=== PATIENT | female | born 1950 | race Caucasian/White ===

== ENCOUNTER 2018-02-25 09:58 | Inpatient (IN) | payer MEDICARE, OTHER ==
[2018-02-25] MEDS ORDERED: Diltiazem 125 MG/25 ML ONE (10:43)
[2018-02-25 10:49] LABS: #Basophils 0.1 thou/uL (0.0-0.2); #Eosinphils 0.1 thou/uL (0.0-0.7); #Lymphocytes 2.2 thou/uL (1.20-3.40); #Monocytes 0.7 thou/uL (0.11-0.59); #Neutrophils 5.8 thou/uL (1.40-6.50); %Basophils 0.7 % (0.0-1.0); %Eosinophils 1.4 % (0.0-10.0); %Lymphocytes 24.5 % (21.0-51.0); %Monocytes 7.3 % (0.0-10.0); %Neutrophils 66.1 % (42.0-75.0); Hemoglobin 15.5 g/dL (12.0-16.0); Mean Corpuscular HGB CONC 31.6 g/dL (32.0-36.0); Mean Corpuscular Hemoglobin 26.6 pg (27.0-31.0); Mean Corpuscular Volume 84.1 fL (78.0-98.0); Mean Platelet Volume 8.8 fL (7.4-10.4); Platelet Count 261 thou/uL (130-400); RBC Distribution Width 13.2 % (11.5-14.5); Red Blood Cell (RBC) Count 5.83 mill/uL (4.20-5.40); White Blood Cell (WBC) Count 8.8 thou/uL (4.8-10.8)
--- NOTE | 2018-02-25 10:50 | RAD ---
PORTABLE UPRIGHT FRONTAL CHEST RADIOGRAPH: Date: 02-25-18 Comparison: None. History: Intermittent palpitations and tachycardia. FINDINGS: Lungs appear clear. No pneumothorax, pleural fluid, focal consolidation, or alveolar edema. Heart and mediastinal contours are unremarkable. IMPRESSION: No acute findings. POS: [facility]
[2018-02-25 11:05] LABS: CKMB 0.6 ng/mL (0-6.6)
[2018-02-25 11:08] LABS: ALT (SGPT) 16 U/L (8-55); AST (SGOT) 18 U/L (5-34); Albumin 4.4 g/dL (3.4-4.8); Alkaline Phosphatase 71 U/L (40-150); Anion Gap 18 mmol/L (10-20); BUN (Urea Nitrogen) 15 mg/dL (9.8-20.1); Bilirubin, Total 0.4 mg/dL (0.2-1.2); Calc. Creatinine Clearance 0 mL/min (70-130); Carbon Dioxide 22 mmol/L (23-31); Chloride 104 mmol/L (98-107); Estimated GFR-MDRD 77; Globulin 3.3 g/dL (2.4-3.5); Glucose 124 mg/dL (80-115); Lipase 14 U/L (8-78); Magnesium 2.3 mg/dL (1.6-2.6); Potassium 4.7 mmol/L (3.5-5.1); Protein, Total 7.7 g/dL (6.0-8.3); Sodium 139 mmol/L (136-145)
[2018-02-25 14:53] LABS: Troponin I Less than 0.010 ng/mL (< 0.028)
[2018-02-25] MEDS ORDERED: Diltiazem HCl 125 MG, Admixture Fee 1 EACH in Sodium Chloride 0.9% 100 ML IVPB SCH (15:00)
[2018-02-25 16:30] VITALS: BMI 33.3
[2018-02-25 17:35] LABS: Troponin I Less than 0.010 ng/mL (< 0.028)
[2018-02-25] MEDS ORDERED: Digoxin 0.5 MG/2 ML AMP SLOW IVP SCH (18:15)
[2018-02-25] MEDS ORDERED: hydrALAZINE 20 MG/ML VIAL SLOW IVP PRN (21:09)
[2018-02-25] MEDS ORDERED: Ondansetron PF 4 MG/2 ML Vial IVP PRN (21:09)
[2018-02-25] MEDS ORDERED: Acetaminophen 500 MG TAB PO PRN (21:09)
[2018-02-25] MEDS ORDERED: Ondansetron ODT 4 MG TAB PO PRN (21:09)
[2018-02-25] MEDS: Sodium Chloride 0.9% 1,000 ML IV SCH (21:43)
[2018-02-26] MEDS: Digoxin 0.5 MG/2 ML AMP SLOW IVP SCH ×2 (00:47→06:09)
--- NOTE | 2018-02-26 04:30 | HP ---
PRIMARY CARE PROVIDER: Dr. Neda Hamilton, formerly Dr. Deedee Richardson. CHIEF COMPLAINT: Palpitations. HISTORY OF PRESENT ILLNESS: This is a 67-year-old female who presented to [facility] Emergency Department complaining of palpitations for the last three days. The patient noted recurrent symptoms over the last three days, lasting up to a few minutes with each episode with accompanying lightheadedness, sweating, but no specific chest pain. The patient denied any jaw or left arm discomfort, recent fever, medication changes, or exposure history. The patient states she had similar episodes on and off over the last four weeks, and also, a similar episode occurring approximately seven years prior to this evaluation. The patient states she has some relief when bearing down to make the palpitations decrease. Activity does make it worse. The patient denies any chronic medication use, recent drug or chemical exposure. In the emergency room, the patient underwent general evaluation with EKG showing atrial fibrillation with rapid ventricular response. The patient received a Cardizem bolus followed by an infusion at 5 mg/hour and transferred to [facility] Room for evaluation. PAST MEDICAL HISTORY: Reviewed and negative. PAST SURGICAL HISTORY: Reviewed and negative. CURRENT MEDICATIONS: Aspirin 81 mg daily. ALLERGIES: NO KNOWN DRUG ALLERGIES. FAMILY HISTORY: No inheritable disease per the patient report. SOCIAL HISTORY: The patient resides in the [facility]. Retired, . No current alcohol, tobacco, or illicit drug use. Functional of all activities of daily living. REVIEW OF SYSTEMS: CONSTITUTIONAL: Negative for weight loss or gain, ability to conduct usual activities. SKIN: Negative for rash, itching. EYES: Negative for double vision, pain. ENT/MOUTH: Negative for nose bleeding, neck stiffness, pain, tenderness. CARDIOVASCULAR: Negative for palpitations, dyspnea on exertion, orthopnea. RESPIRATORY: Negative for shortness of breath, wheezing, cough, hemoptysis, fever or night sweats. GASTROINTESTINAL: Negative for poor appetite, abdominal pain, heartburn, nausea, vomiting, constipation, or diarrhea. GENITOURINARY: Negative for urgency, frequency, dysuria, nocturia. MUSCULOSKELETAL: Negative for pain, swelling. NEUROLOGIC/PSYCHIATRIC: Negative for anxiety, depression. ALLERGY/IMMUNOLOGIC: Negative for skin rash, bleeding tendency. Otherwise negative except as stated per HPI. PHYSICAL EXAMINATION: VITAL SIGNS: On admission, blood pressure 167/88, pulse 107, respiratory rate 16, temperature 97.6 degrees Fahrenheit, and O2 saturation 100% on room air. GENERAL APPEARANCE: This is a 67-year-old female, alert, oriented x3, pleasant, in no acute distress. HEENT: Pupils are equal, round, reactive to light and accommodation. Extraocular muscles are intact. No scleral icterus. No conjunctival injection. Nares patent. OP is clear. Teeth in good repair. NECK: Supple. No cervical adenopathy. No thyromegaly. No carotid bruits. No JVD appreciated. Cervical spine with full active and passive range of motion. No meningeal signs appreciated. CHEST: Lungs are clear to auscultation bilaterally. CARDIOVASCULAR: S1, S2 with irregular rate and rhythm. Tachycardic. ABDOMEN: Rounded, soft, nontender, nondistended. Bowel sounds are positive in all four quadrants. There is no hepatosplenomegaly. No abdominal bruits. No rebound or guarding appreciated. EXTREMITIES: Warm and dry with fair turgor. No clubbing, cyanosis, or asymmetric edema appreciated. Pulses palpable distally at the dorsalis pedis, posterior tibial, and popliteal arteries bilaterally. Capillary refill less than 2 seconds. NEUROLOGIC: Cranial nerves 2 through 12 are grossly intact. No focal or lateralizing signs appreciated. PERTINENT LAB AND X-RAY FINDINGS: Basic metabolic profile within normal limits. Calcium 10.0, magnesium 2.3. LFTs within normal limits. Troponin I negative x3. TSH 1.88. CBC showed a white blood cell count of 8.8, hemoglobin 16, hematocrit 49, and platelet count 261 with normal differential. Portable chest x-ray dated 02/25/2018 showed no acute cardiopulmonary process. EKG dated 02/25/2018 by my interpretation shows atrial fibrillation with rapid ventricular response in the 170s. Normal R-wave progression noted in the precordial leads. Normal axis. ASSESSMENT/PLAN: 1. Atrial fibrillation with rapid ventricular response. Questionable duration and potential chronic component. We will continue rate control strategy with Cardizem infusion at 7.5 mg/hour. Digoxin 0.5 mg IV x1 followed by 0.25 mg p.o. daily. Aspirin 81 mg p.o. daily. Check 2D transthoracic echocardiogram in the a.m. Repeat magnesium level in the a.m. Continue intravenous normal saline at 75 mL/hour. 2. Hyperglycemia. Suspect stress reaction. We will continue to monitor glucose trend. Consider A1c evaluation. 3. Prophylaxis. SCDs while in bed. Pepcid 20 mg p.o. b.i.d. 4. Code status: Full. Surrogate medical decision maker is the patient's daughter. Job ID: [id number]
[2018-02-26] MEDS ORDERED: Diltiazem HCl 125 MG, Admixture Fee 1 EACH in Sodium Chloride 0.9% 100 ML IVPB SCH (05:15)
[2018-02-26 06:29] LABS: Hemoglobin 14.2 g/dL (12.0-16.0); Mean Corpuscular HGB CONC 33.1 g/dL (32.0-36.0); Mean Corpuscular Hemoglobin 28.8 pg (27.0-31.0); Mean Corpuscular Volume 86.9 fL (78.0-98.0); Mean Platelet Volume 8.5 fL (7.4-10.4); Platelet Count 272 thou/uL (130-400); RBC Distribution Width 13.3 % (11.5-14.5); Red Blood Cell (RBC) Count 4.92 mill/uL (4.20-5.40); White Blood Cell (WBC) Count 7.6 thou/uL (4.8-10.8)
[2018-02-26 06:36] LABS: ALT (SGPT) 12 U/L (8-55); AST (SGOT) 11 U/L (5-34); Albumin 3.7 g/dL (3.4-4.8); Alkaline Phosphatase 64 U/L (40-150); Anion Gap 12 mmol/L (10-20); BUN (Urea Nitrogen) 16 mg/dL (9.8-20.1); Bilirubin, Total 0.3 mg/dL (0.2-1.2); Calc. Creatinine Clearance 130 mL/min (70-130); Carbon Dioxide 24 mmol/L (23-31); Cardiac Risk 4.9 (Less than 4.5); Chloride 107 mmol/L (98-107); Cholesterol 178 mg/dl (< 200 Desired); Estimated GFR-MDRD 83; Globulin 2.7 g/dL (2.4-3.5); Glucose 117 mg/dL (80-115); HDL Cholesterol 36 mg/dL (>60 Neg Risk); LDL Cholesterol, Calculated 124 mg/dL; Magnesium 1.9 mg/dL (1.6-2.6); Potassium 4.4 mmol/L (3.5-5.1); Protein, Total 6.4 g/dL (6.0-8.3); Sodium 139 mmol/L (136-145); Triglycerides 91 mg/dL (Less than 150)
[2018-02-26 06:46] LABS: Band 1 % (5-11); Lymphocytes 25 % (21-51); MDiff Complete? YES; Monocytes 3 % (0-10); Neutrophil 68 % (42-75); PLT Morphology Comment Appears Adequate; RBC Morphology Normal; Reactive Lymphocytes 3 % (0-10)
--- NOTE | 2018-02-26 07:14 | CON ---
DATE OF CONSULTATION: 02/25/2018 TYPE OF CONSULTATION: Cardiology. INDICATIONS FOR CONSULTATION: A 67-year-old female with atrial fibrillation with rapid ventricular response. HISTORY OF PRESENT ILLNESS: This is a very pleasant 67-year-old female, who has had no previous cardiac history that she is aware of except for some occasional palpitations notes that she had an increased heart rate, she became short of breath since last p.m., and it became worse when she has exertion. She had a similar episode about 7 years ago and has had some short episodes in the interim, and these have usually resolved on their own, but she noticed to have increased heart rate and shortness of breath, and presented into the emergency room and was found to have atrial fibrillation with rapid ventricular response, heart rate was up to 170 beats per minute. Since that time, she has been started on IV diltiazem, and the heart rate still is in the 120s to 130s. PAST MEDICAL HISTORY: Unremarkable for any operations or illness. She states she has never been in the hospital before. HOME MEDICATIONS: None except for an occasional aspirin. SOCIAL HISTORY: She is a . She has no children. She has no tobacco use. She has occasional alcohol. She drinks margaritas on Sunday nights. She travels quite frequently with her sister, and otherwise, has been having no significant abnormalities and no significant complaints. FAMILY HISTORY: Unremarkable for any early heart disease. ALLERGIES: NONE. REVIEW OF SYSTEMS: A 12-point review of systems is unremarkable except what is noted in the history of present illness and occasional cough about a month ago, which was a dry cough. PHYSICAL EXAMINATION: GENERAL: Reveals a well-developed, well-nourished female, who is in no acute distress at this time. VITAL SIGNS: Blood pressure is 150/69, earlier it was 112/69. She is afebrile. Heart rate is in the 120s to 130s and remains in atrial fibrillation. Respiratory rate is 18. O2 saturation is 94%. HEENT: Shows the head to be normocephalic and atraumatic. Carotid pulses are present. There are no bruits. There is no JVD. The thyroid is not enlarged. Oral mucosa is pink and moist. CHEST: Clear to auscultation. There are no rales, rhonchi, or wheezing noted. CARDIOVASCULAR: Reveals a rapid heart rate, which is irregular. I did not hear any significant murmurs, heaves, thrills, bruits, or rubs. ABDOMEN: Shows obesity with positive bowel sounds. There is no organomegaly or massed noted. EXTREMITIES: Femoral pulses are present. Extremities show no clubbing, cyanosis, or edema. Pedal pulses are present. NEUROLOGIC: She appears to be fully intact without any focal motor deficits. She has normal strength and normal tone. SKIN: Warm and dry. IMAGING STUDIES: EKG shows atrial fibrillation with rapid ventricular response, 170 beats per minute, which is now down to 120s. LABORATORY DATA: Show WBCs of 8.8, hemoglobin 49. Chemistries indicate a sodium of 139, potassium of 4.7. Blood sugar was 124. Troponin I is negative. TSH is 1.88. IMPRESSION: 1. Atrial fibrillation with rapid ventricular response. She is on IV diltiazem. We will increase the drip and may add digoxin for better rate control. Echocardiogram is still pending. We will ensure that the patient does get an echocardiogram and further recommendations will depend on the results of the echocardiogram. If the left atrium is significantly dilated, she may not be a good candidate to undergo electrocardioversion of the atrial fibrillation and may need to under an EP evaluation and possible ablation of the atrial fibrillation. She did state that her also had atrial fibrillation in the past, and she is aware of the atrial fibrillation technology. At this time, I am uncertain as to exactly how long she has been in atrial fibrillation, and it would not be christensen to perform any type of cardioversion at this time. We would just continue rate control, and we will start anticoagulation. 2. Elevated blood sugars. She is not aware that she is a diabetic; however, this will need to be evaluated further to see whether or not she has any underlying diabetes. Also, we may need further evaluation and we will need to determine the etiology of the atrial fibrillation. I did explain to her that there is always a possibility of underlying coronary artery disease; however, with a heart rate of 170 beats per minute, she did not have any EKG changes to indicate ischemia, and she has had no chest pain or shortness of breath prior to having the episodes of the tachycardia. We are more than happy to continue to follow the patient with you, but further recommendations will depend on the results of the echocardiogram. Job ID: [id number]
[2018-02-26] MEDS: Famotidine 20 MG TAB PO SCH ×2 (08:52→20:58)
[2018-02-26] MEDS: Digoxin 0.25 MG TAB PO SCH (08:52)
[2018-02-26] MEDS: Aspirin 81 mg Enteric Coated Tablet PO SCH (08:53)
[2018-02-26] MEDS: Sodium Chloride 0.9% 1,000 ML IV SCH (09:24)
--- NOTE | 2018-02-26 14:16 | PDOC.CTH ---
<Diana Lopez - Last Filed: 02/26/18 14:15> Cardiology Progress Note - Subjective The pt seen and examined. No overnight events. No cardiac complaints. - Objective Vital Signs Temp Pulse Resp BP Pulse Ox 02/26/18 11:15 97.9 F 91 18 153/72 H 02/26/18 08:52 96 02/26/18 07:20 97.5 F L 78 16 106/58 L 98 02/26/18 06:09 83 02/26/18 04:00 99.5 F 98 18 96/65 97 Weight 234 lb 14.4 oz 02/25/18 02/26/18 02/27/18 06:59 06:59 06:59 Intake Total 240 940.4 Output Total 150 200 Balance 90 740.4 - Physical Examination General/Neuro: alert & oriented x3 Neck: no JVD present Lungs: CTA Heart: other: (irregular) Abdomen: soft Extremities: other: (No edema) - Telemetry Telemetry Rhythm: AFib 90-100s - Labs Result Diagrams: 02/26/18 05:16 02/26/18 05:16 Troponin/CKMB CK-MB (CK-2) 0.6 ng/mL (0-6.6) 02/25/18 10:34 Troponin I Less than 0.010 ng/mL (< 0.028) 02/25/18 16:47 - Assessment/Plan 1. New-onset AFib with RVR - Rate well controlled with Cardizm 7.5mg/h and Digoxin 0.125mg qd. [id number] Score is 2 (age and gender). will start Eliquis 5mg BID from this PM. will start BBlocker when her BP is stable. Echo result is pending at this time. 2. elevated glucose level - will check HgbA1c tomorrow MAR reviewed Review of Systems - Review of Systems Constitutional: reports: no symptoms reported EENTM: reports: no symptoms reported Respiratory: reports: no symptoms reported Cardiac (ROS): reports: no symptoms reported ABD/GI: reports: no symptoms reported : reports: no symptoms reported <Melani Luke - Last Filed: 02/26/18 17:13> Cardiology Progress Note - Objective Vital Signs Temp Pulse Resp BP BP Pulse Ox 02/26/18 16:15 97.9 F 106 H 18 142/70 H 93 L 02/26/18 14:33 91 130/62 02/26/18 11:15 97.9 F 91 18 153/72 H 02/26/18 08:52 96 02/26/18 07:20 97.5 F L 78 16 106/58 L 98 02/26/18 06:09 83 Weight 234 lb 14.4 oz 02/25/18 02/26/18 02/27/18 06:59 06:59 06:59 Intake Total 240 940.4 Output Total 150 200 Balance 90 740.4 - Labs Result Diagrams: 02/26/18 05:16 02/26/18 05:16 Troponin/CKMB CK-MB (CK-2) 0.6 ng/mL (0-6.6) 02/25/18 10:34 Troponin I Less than 0.010 ng/mL (< 0.028) 02/25/18 16:47 - Assessment/Plan Pt. seen and eval. by me. I agree with the A/P by the INTEGRITY ENGINEER. Plan to change to po diltiazem, oral anticoagulation and probable cardioversion in 4 weeks. If stable , home in AM.
--- NOTE | 2018-02-26 14:19 | PDOC.PN ---
- Subjective Encounter Start Date: 02/26/18 Encounter Start Time: 13:45 Subjective: f/u for A-fib RVR on Cardizem gtt now rate-controlled. Feels ok and -: no palpitations. - Objective Resuscitation Status - Order Detail: 02/25/18 21:04 Resuscitation Status Routine Resuscitation Status: FULL: Full Resuscitation MAR Reviewed: Yes Vital Signs & Weight: Vital Signs (12 hours) Temp Pulse Resp BP Pulse Ox 02/26/18 11:15 97.9 F 91 18 153/72 H 02/26/18 08:52 96 02/26/18 07:20 97.5 F L 78 16 106/58 L 98 02/26/18 06:09 83 02/26/18 04:00 99.5 F 98 18 96/65 97 Weight Weight 234 lb 14.4 oz I&O: 02/25/18 02/26/18 02/27/18 06:59 06:59 06:59 Intake Total 240 940.4 Output Total 150 200 Balance 90 740.4 Result Diagrams: 02/26/18 05:16 02/26/18 05:16 Additional Labs: Laboratory Tests 02/25/18 10:34 TSH 3rd Generation 1.8800 Radiology Reviewed by me: Yes (2D echo - pending) EKG Reviewed by me: Yes (Tele - A-fib in 80's) Phys Exam - Physical Examination Constitutional: NAD HEENT: PERRLA, sclera anicteric, oral pharynx no lesions Neck: no nodes, no JVD, supple, full ROM Respiratory: no wheezing, no rales, no rhonchi, clear to auscultation bilateral S1, S2 Cardiovascular: no rub, gallop, irregular Gastrointestinal: soft, non-tender, no distention, positive bowel sounds Musculoskeletal: no edema, pulses present Neurological: normal sensation, moves all 4 limbs Psychiatric: normal affect, A&O x 3 Skin: normal turgor, cap refill <2 seconds Dx/Plan (1) Atrial fibrillation with RVR Code(s): I48.91 - UNSPECIFIED ATRIAL FIBRILLATION Status: Chronic Comment: Start Cardizem CD 120mg daily, d/c Cardizem gtt, continue Digoxin 0.25mg daily, start Xarelto 20mg daily, 2D echo pending (2) Palpitations Code(s): R00.2 - PALPITATIONS Status: Acute Comment: Secondary to #1, improved (3) Hyperglycemia Code(s): R73.9 - HYPERGLYCEMIA, UNSPECIFIED Status: Chronic Comment: A1C pending, serial monitoring - Plan plan discussed w/ family, out of bed/ambulate, DVT proph w/SCDs Stable currently -: Start Cardizem CD, d/c Cardizem gtt -: Start Xarelto 20mg daily -: 2D echo pending -: OOB/ambulate * Stool guaiac
[2018-02-26] MEDS ORDERED: Rivaroxaban 10 MG TAB PO SCH (18:00)
[2018-02-26] MEDS: Apixaban 5 MG TAB PO SCH (20:58)
[2018-02-27 05:40] LABS: Hemoglobin 14.2 g/dL (12.0-16.0); Platelet Count 277 thou/uL (130-400)
[2018-02-27 05:44] LABS: Hemoglobin A1c 5.5 % (4.0-6.0)
[2018-02-27] MEDS: Famotidine 20 MG TAB PO SCH (08:59)
[2018-02-27] MEDS: Digoxin 0.25 MG TAB PO SCH (09:00)
[2018-02-27] MEDS: Apixaban 5 MG TAB PO SCH (09:00)
[2018-02-27] MEDS: Aspirin 81 mg Enteric Coated Tablet PO SCH (09:00)
[2018-02-27] MEDS ORDERED: Dronedarone HCl 400 MG TAB PO SCH ×3 (09:09→17:00)
--- NOTE | 2018-02-27 12:30 | PDOC.CTH ---
<Diana Lopez - Last Filed: 02/27/18 12:28> Cardiology Progress Note - Subjective The pt seen and examined. No overnight events. No cardiac complaints. RN gave the list of OACs (Eliquis, Xarelto, and Prodaxa) and 1 month free Eliquis coupon to the pt today. - Objective Vital Signs Temp Pulse Resp BP Pulse Ox 02/27/18 09:01 76 02/27/18 09:00 76 02/27/18 07:46 95 02/27/18 07:45 97.5 F L 76 17 98/50 L 95 02/27/18 04:00 98.8 F 77 18 129/64 18 L Weight 233 lb 12.8 oz 02/26/18 02/27/18 02/28/18 06:59 06:59 06:59 Intake Total 240 2510.4 47 Output Total 150 1350 Balance 90 1160.4 47 - Physical Examination General/Neuro: alert & oriented x3 Neck: no JVD present Lungs: CTA Heart: RRR Abdomen: soft Extremities: other: (No edema) - Telemetry Telemetry Rhythm: SR 80s - Labs Result Diagrams: 02/27/18 04:44 02/27/18 04:44 Troponin/CKMB CK-MB (CK-2) 0.6 ng/mL (0-6.6) 02/25/18 10:34 Troponin I Less than 0.010 ng/mL (< 0.028) 02/25/18 16:47 - Assessment/Plan 1. New-onset AFib with RVR - Converted back to SR at 1755 on 02/26/18; On Diltiazem 120mg qd, Multaq 400mg BID, and Eliquis 5mg BID; [id number] Score is 2 (age and gender). Will start BBlocker when her BP is stable. 2. elevated glucose level - HgbA1c today was 5.5. MAR reviewed * Echo showed EF 60% with normal atrium sizes. * From Cardiac standpoint, the pt is stable to d/c home. The pt will f/u with Dr Luke' office within 10 days. * discussed with the pt and family about OAC options, the risk and benefit of OAC. They voiced understanding. RN gave the list of OACs (Eliquis, Xarelto, and Prodaxa) and 1 month free Eliquis coupon to the pt today. Review of Systems - Review of Systems Constitutional: reports: no symptoms reported EENTM: reports: no symptoms reported Respiratory: reports: no symptoms reported Cardiac (ROS): reports: no symptoms reported ABD/GI: reports: no symptoms reported : reports: no symptoms reported <Melani Luke - Last Filed: 02/27/18 13:06> Cardiology Progress Note - Objective Vital Signs Temp Pulse Resp BP Pulse Ox 02/27/18 09:01 76 02/27/18 09:00 76 02/27/18 07:46 95 02/27/18 07:45 97.5 F L 76 17 98/50 L 95 02/27/18 04:00 98.8 F 77 18 129/64 18 L Weight 233 lb 12.8 oz 02/26/18 02/27/18 02/28/18 06:59 06:59 06:59 Intake Total 240 2510.4 47 Output Total 150 1350 Balance 90 1160.4 47 - Labs Result Diagrams: 02/27/18 04:44 02/27/18 04:44 Troponin/CKMB CK-MB (CK-2) 0.6 ng/mL (0-6.6) 02/25/18 10:34 Troponin I Less than 0.010 ng/mL (< 0.028) 02/25/18 16:47 - Assessment/Plan pt. seen and eval. by me. I agree with the A/p by the CANS VACUUM TESTER. Pt. converted to NSR and has remained in NSR . Chest clear. RRR. Feels better. Continue Multaq,low does diltiazem,eliquis.
[2018-02-27 15:22] VITALS: BP 145/71; TEMP 98.7
--- NOTE | 2018-02-28 09:04 | DIS ---
DATE OF ADMISSION: 02/25/2018 DATE OF DISCHARGE: 02/27/2018 DISCHARGE DIAGNOSES: 1. Atrial fibrillation with rapid ventricular response, converting to sinus mechanism. 2. Palpitations secondary to #1, resolved. 3. Hyperglycemia with normal hemoglobin A1c. CONSULTATIONS: Dr. Luke, with Cardiology Service. PERTINENT LAB AND X-RAY FINDINGS: Basic metabolic profile within normal limits. Hemoglobin A1c 5.5, magnesium level 1.9. Troponin I negative x3. Total cholesterol 178, triglycerides 91, HDL 36, LDL 124. TSH 1.88. CBC within normal limits. Portable chest x-ray dated 02/25/2018 showed no acute cardiopulmonary process. 2D transthoracic echocardiogram dated 02/26/2018 showed ejection fraction of 60% to 65%. Left atrial within normal size dimensions. Mild tricuspid regurgitation. BRIEF HOSPITAL COURSE: The patient was admitted to the Telemetry unit after presenting with persistent palpitations and shortness of breath with EKG showing atrial fibrillation with rapid ventricular response. The patient was placed on Cardizem infusion as well as digoxin for overall rate control. The patient underwent 2D transthoracic echocardiogram showing a preserved ejection fraction and normal atrial size. The patient was evaluated by Cardiology Service with recommendations for rate control strategy. In addition, the patient's CHADS2-VASc score was 2 and the patient was initiated on Eliquis 5 mg b.i.d. The patient did convert to sinus mechanism during her hospital course, transitioning to Multaq 400 mg b.i.d. in addition to Cardizem 120 mg daily. The patient overall remained clinically stable, tolerating regular oral intake, ambulating without assistance or difficulty with stable vital signs. I have examined the patient at the time of discharge and discussed followup instructions. The patient overall clinically stable and ready for discharge on 02/27/2018. DISCHARGE MEDICATIONS: 1. Eliquis 5 mg p.o. b.i.d. 2. Enteric-coated aspirin 81 mg p.o. daily. 3. Cardizem CD 120 mg p.o. daily. 4. Multaq 400 mg p.o. b.i.d. FOLLOWUP: The patient may follow up with Dr. Neda Hamilton within seven days of discharge. The patient will follow up with Dr. Henri Luke within two weeks of discharge. CONDITION ON DISCHARGE: Stable. ACTIVITY: Ad-kina. DIET: Heart healthy. CODE STATUS: Full. DISPOSITION: Home on 02/27/2018. TIME SPENT: Total time preparing and coordinating discharge is 34 minutes. Job ID: [id number]
== END 2018-02-27 15:25 | disposition home or self-care (01) | DRG 310 ==
LOC: SCSER 09:58 → ERHOLD 11:54 → 2NO 13:58
PROVIDERS: ADMIT Internal Medicine; ATTEND Internal Medicine
DX: I48.91 Unspecified atrial fibrillation (principal); R73.9 Hyperglycemia, unspecified; Z79.82 Long term (current) use of aspirin
CPT/HCPCS: 36415; 71045; 80053; 80061; 82274; 82553; 82565; 83036; 83690; 83735; 84443; 84484; 85007; 85014; 85018; 85025; 85027; 85049; 93005; 93306; J1160; J7050